=== PATIENT | female | born 1990 | race American Indian/Alaskan Native ===

== ENCOUNTER 2020-05-27 11:30 | Emergency (ER) | payer SELFPAY ==
--- NOTE | 2020-05-27 15:55 | Emergency Department Report ---
Abscess Boil HPI - HPI Chief Complaint: Skin/Abscess/Foreign Body Stated Complaint: CYST Time Seen by Provider: 05/27/20 15:14 Duration: 1 Week Location: Other (Left labia) Severity: Mild History: Yes Pain, No Fever, No Purulent Drainage, No Numbness, No Foreign Body, No Previous History, No Insect Bite HPI: This is a 29-year-old female nontoxic, well nourished in appearance, no acute signs of distress presents to the ED with c/o of redness and pain to left labia x 1 week. Patient denies any pus or drainage. Patient denies any fever, chills, nausea, vomiting, chest pain, shortness of breath, headache or stiff neck. Patient denies any allergies or significant past medical history. Home Medications: Previous Rx's Medication Instructions Recorded Last Taken Type Acetaminophen/Codeine [Tylenol 1 tab PO Q6H PRN #12 tab 05/27/20 Unknown Rx /Codeine # 3 tab] Sulfamethoxazole/Trimethoprim 1 each PO BID #14 tablet 05/27/20 Unknown Rx [Bactrim DS TAB] Allergies/Adverse Reactions: Allergies Allergy/AdvReac Type Severity Reaction Status Date / Time No Known Allergies Allergy Unverified 05/27/20 12:14 ED Review of Systems ROS: Stated complaint: CYST Other details as noted in HPI Constitutional: denies: chills, fever Eyes: denies: eye pain, eye discharge, vision change ENT: denies: ear pain, throat pain Respiratory: denies: cough, shortness of breath, wheezing Cardiovascular: denies: chest pain, palpitations Endocrine: no symptoms reported Gastrointestinal: denies: abdominal pain, nausea, diarrhea Genitourinary: denies: urgency, dysuria, discharge Musculoskeletal: denies: back pain, joint swelling, arthralgia Skin: denies: rash, lesions Neurological: denies: headache, weakness, paresthesias Psychiatric: denies: anxiety, depression Hematological/Lymphatic: denies: easy bleeding, easy bruising ED Past Medical Hx - Past Medical History Previous Medical History?: No - Surgical History Past Surgical History?: No - Medications Home Medications: Home Medications Medication Instructions Recorded Confirmed Last Taken Type Acetaminophen/Codeine [Tylenol 1 tab PO Q6H PRN #12 tab 05/27/20 Unknown Rx /Codeine # 3 tab] Sulfamethoxazole/Trimethoprim 1 each PO BID #14 tablet 05/27/20 Unknown Rx [Bactrim DS TAB] ED Abscess Boil Physical Exam - Exam General: Vital signs noted. No distress. Alert and acting appropriately. Size: 3 cm Exam: Yes Tenderness, Yes Fluctuance, Yes Normal Neurologic Exam, Yes Normal Circulation, No Lymphangitis, No Crepitation, No Heart Murmur I & D Note - I & D Note I & D Note: Under sterile field, I used Betadine to cleanse the area. I then used 2% lidocaine plain with 25-gauge 5/8 needle to inject area for anesthetic purposes. Total volume injected 3 mL. I then used an 11 blade to make a 1 cm incision. About 5 mL's of purulent drainage has been noted. I then used a hemostat to break the abscess formation. I then used sterile 0.9% normal saline flush to flush the wound with total volume of 40 mL used. I then put a 1/4 iodoform packing to the incision. A sterile 4 x 4 with tape has been applied as dressing. Bleeding is under control. Patient tolerated the procedure well with no signs of distress noted. ED Course Vital Signs 05/27/20 12:14 Temperature 98.5 F Pulse Rate 79 Respiratory 16 Rate Blood Pressure 135/90 [Right] O2 Sat by Pulse 100 Oximetry - Reevaluation(s) Reevaluation #1: 05/27/20 15:55 Patient is speaking in full sentences with no signs of distress noted. Critical care attestation.: If time is entered above; I have spent that time in minutes in the direct care of this critically ill patient, excluding procedure time. ED Medical Decision Making - Medical Decision Making This is a 29-year-old female that presents with left labia abscess. Patient is stable and was examined by me. This is incision and drainage and has been performed and patient tolerated well. A sterile dressing has been applied. Patient was educated on proper wound care. Patient is discharged with Bactrim and Tylenol with codeine and was instructed not to operate any machinery while taking Tylenol with codeine due to drowsiness. Patient was instructed to return in 2 days for packing removal. Patient was instructed to refer to Follow-up with a primary care doctor in 3-5 days or if symptoms worsen and continue return to emergency room as soon as possible. At time of discharge, the patient does not seem toxic or ill in appearance. No acute signs of distress noted. Patient agrees to discharge treatment plan of care. No further questions noted by the patient. ED Disposition Clinical Impression: Bartholin's gland abscess, Encounter for incision and drainage procedure Disposition: TO HOME OR SELFCARE Is pt being admited?: No Does the pt Need Aspirin: No Condition: Stable Instructions: Abscess Incision and Drainage (ED), Bartholin Cyst (ED), Acetaminophen/Codeine (By mouth) Additional Instructions: Follow-up with a primary care doctor in 3-5 days or if symptoms worsen and continue return to emergency room as soon as possible. Return in 2 days for packing removal. Do not operate any machinery while taking Tylenol with codeine as this may cause drowsiness. Prescriptions: Sulfamethoxazole/Trimethoprim [Bactrim DS TAB] 1 each PO BID #14 tablet Acetaminophen/Codeine [Tylenol /Codeine # 3 tab] 1 tab PO Q6H PRN #12 tab PRN Reason: Pain , Severe (7-10) Referrals: PRIMARY MD SAJI [Primary Care Provider] - 3-5 Days SKYLER PATINO MD [Staff Physician] - 3-5 Days Forms: Work/School Release Form(ED)
[2020-05-27] MEDS ORDERED: HYDROcodone/ACETAMINOPHEN 10-325MG TAB PO ONE (17:04)
[2020-05-27 18:44] VITALS: BP 114/79
== END 2020-05-27 18:56 | disposition home or self-care (01) ==
LOC: ED 11:30
DX: N75.1 Abscess of Bartholin's gland (principal)
CPT/HCPCS: 99282

== ENCOUNTER 2020-05-30 13:15 | Emergency (ER) | payer SELFPAY ==
--- NOTE | 2020-05-30 13:21 | Event Note ---
ED Screening Note Date of service: 05/30/20 Time: 13:20 ED Screening Note: The patient was evaluated in the emergency department for symptoms described in the history of present illness. He/she was evaluated in the context of the global COVID-19 pandemic, which necessitated consideration that the patient might be at risk for infection with the virus that causes COVID-19. Institutional protocols and algorithms that pertain to the evaluation of patients at risk for COVID-19 are in a state of rapid change based on information released by regulatory bodies including the CDC and federal and state organizations. These policies and algorithms were followed during the patient's care in the emergency department. Please note that these policies, procedures and recommendations changed on a rapid basis. 29-year-old -[place] female presents to the emergency room for packing removal in her vaginal area. This initial assessment/diagnostic orders/clinical plan/treatment(s) is/are subject to change based on patients health status, clinical progression and re- assessment by fellow clinical providers in the ED. Further treatment and workup at subsequent clinical providers discretion. Patient/guardian urged not to elope from the ED as their condition may be serious if not clinically assessed and managed. Initial orders include:
[2020-05-30 13:23] VITALS: BP 139/70
--- NOTE | 2020-05-30 14:50 | Emergency Department Report ---
Suture/Staple Removal - [facility] Chief Complaint: Skin/Abscess/Foreign Body Stated Complaint: UNPACK CYST Time Seen by Provider: 05/30/20 14:24 When Sutures or Seble Placed: 3 days Wound Location: labia ED Review of Systems ROS: Stated complaint: UNPACK CYST Other details as noted in HPI Constitutional: denies: chills, fever Eyes: denies: eye pain, eye discharge, vision change ENT: denies: ear pain, throat pain Respiratory: denies: cough, shortness of breath, wheezing Cardiovascular: denies: chest pain, palpitations Endocrine: no symptoms reported Gastrointestinal: denies: abdominal pain, nausea, diarrhea Genitourinary: denies: urgency, dysuria, discharge Musculoskeletal: denies: back pain, joint swelling, arthralgia Skin: denies: rash, lesions Neurological: denies: headache, weakness, paresthesias Psychiatric: denies: anxiety, depression Hematological/Lymphatic: denies: easy bleeding, easy bruising ED Past Medical Hx - Past Medical History Previous Medical History?: No - Surgical History Past Surgical History?: No - Social History Smoking Status: Never Smoker Substance Use Type: Marijuana - Medications Home Medications: Home Medications Medication Instructions Recorded Confirmed Last Taken Type Acetaminophen/Codeine [Tylenol 1 tab PO Q6H PRN #12 tab 05/27/20 Unknown Rx /Codeine # 3 tab] Sulfamethoxazole/Trimethoprim 1 each PO BID #14 tablet 05/27/20 Unknown Rx [Bactrim DS TAB] Suture Removal Exam - Exam General: Vital signs noted. No distress. Alert and acting appropriately. Wound: No Pathologic Erythema, No Tenderness, No Drainage, No Pus, No Wound Dehiscence Other Systems: All other systems reviewed and are unremarkable. ED Course Vital Signs 05/30/20 13:20 Temperature 98.3 F Pulse Rate 76 Respiratory 18 Rate Blood Pressure 139/70 O2 Sat by Pulse 97 Oximetry - Reevaluation(s) Reevaluation #1: 05/30/20 14:50 Patient is speaking in full sentences with no signs of distress noted. ED Recheck MDM - Medical Decision Making One fourth iodoform packing has been removed from the labia. Patient tolerated well. No signs of swelling. Well-healing. No induration or fluctuance. No purulent drainage. Track Service Person Liz RN present during exam. Patient stated is currently taking antibiotics. And educated to continue taking antibiotics as prescribed. Patient was instructed to follow-up with a primary care doctor in 3-5 days or if symptoms worsen and continue return to emergency room as soon as possible. At time of discharge, the patient does not seem toxic or ill in appearance. No acute signs of distress noted. Patient agrees to discharge treatment plan of care. No further questions noted by the patient. Critical care attestation.: If time is entered above; I have spent that time in minutes in the direct care of this critically ill patient, excluding procedure time. ED Disposition Clinical Impression: Encounter for abscess packing removal Disposition: DC-01 TO HOME OR SELFCARE Is pt being admited?: No Does the pt Need Aspirin: No Condition: Stable Additional Instructions: Follow-up with a primary care doctor in 3-5 days or if symptoms worsen and continue return to emergency room as soon as possible. Referrals: PRIMARY MD SAJI [Referring] - 3-5 Days SKYLER PATINO MD [Staff Physician] - 3-5 Days
== END 2020-05-30 15:10 | disposition home or self-care (01) ==
LOC: ED 13:15
DX: N75.1 Abscess of Bartholin's gland (principal); Z48.00 Encounter for change or removal of nonsurgical wound dressing
CPT/HCPCS: 99282

== ENCOUNTER 2020-09-25 10:26 | Emergency (ER) | payer SELFPAY ==
[2020-09-25 10:41] VITALS: BP 130/87
--- NOTE | 2020-09-25 10:41 | Emergency Department Report ---
ED Female HPI - General Chief complaint: Abdominal Pain Stated complaint: RT FLANK PAIN Time Seen by Provider: 09/25/20 10:36 Source: patient Mode of arrival: Ambulatory Limitations: No Limitations - History of Present Illness Initial comments: 29-year-old -[place] female presents to the emergency room stating she has right flank pain that is been intermittent for the last week. Patient states that the pain is intense when she has had to take a Tylenol with hydrocodone. Patient states she has a history of a kidney stone and states that it feels the same. Patient reports that the pain is, nagging and throbbing at times. She states that times is just a dull ache. Patient denies any nausea no vomiting. She denies any vaginal bleeding vaginal discharge. Patient states she has not had her cycle this month that she has changed her diet to vegan. Patient reports she is in a lesbian relationship and does not feel that she is . MD Complaint: other (Right flank pain) Onset/Timin -: week(s) Radiation: non-radiating, R flank Severity: moderate Severity scale (0 -10): 7 Quality: dull, aching Consistency: constant Improves with: none Worsens with: other (Holding her urine) Are you Now?: No Associated Symptoms: denies other symptoms - Related Data Sexually active: Yes (Lesbian relationship) Previous Rx's Medication Instructions Recorded Last Taken Type Acetaminophen/Codeine [Tylenol 1 tab PO Q6H PRN #12 tab 05/27/20 Unknown Rx /Codeine # 3 tab] Sulfamethoxazole/Trimethoprim 1 each PO BID #14 tablet 05/27/20 Unknown Rx [Bactrim DS TAB] Nitrofurantoin [place]/M-Cryst 100 mg PO Q12HR 10 Days #20 capsule 09/25/20 Unknown Rx [Macrobid CAP] Allergies Allergy/AdvReac Type Severity Reaction Status Date / Time nickel Allergy Unknown Verified 09/25/20 10:31 ED Review of Systems ROS: Stated complaint: RT FLANK PAIN Other details as noted in HPI Comment: All other systems reviewed and negative ED Past Medical Hx - Past Medical History Additional medical history: KIDNEY STONES - Surgical History Past Surgical History?: No - Social History Smoking Status: Never Smoker Substance Use Type: Marijuana - Medications Home Medications: Home Medications Medication Instructions Recorded Confirmed Last Taken Type Acetaminophen/Codeine [Tylenol 1 tab PO Q6H PRN #12 tab 05/27/20 Unknown Rx /Codeine # 3 tab] Sulfamethoxazole/Trimethoprim 1 each PO BID #14 tablet 05/27/20 Unknown Rx [Bactrim DS TAB] Nitrofurantoin [place]/M-Cryst 100 mg PO Q12HR 10 Days #20 capsule 09/25/20 Unknown Rx [Macrobid CAP] ED Physical Exam - General Limitations: No Limitations General appearance: alert, in no apparent distress - Head Head exam: Present: atraumatic, normocephalic - Eye Eye exam: Present: normal appearance - ENT ENT exam: Present: mucous membranes moist - Neck Neck exam: Present: normal inspection, full ROM - Respiratory Respiratory exam: Absent: accessory muscle use - Cardiovascular Cardiovascular Exam: Present: regular rate, normal rhythm. Absent: systolic murmur, diastolic murmur, rubs, gallop - GI/Abdominal GI/Abdominal exam: Present: soft. Absent: distended, tenderness, guarding - Extremities Exam Extremities exam: Present: normal inspection, full ROM - Back Exam Back exam: Present: normal inspection - Neurological Exam Neurological exam: Present: alert, oriented X3, normal gait - Psychiatric Psychiatric exam: Present: normal affect, normal mood - Skin Skin exam: Present: warm, dry, intact, normal color. Absent: rash ED Course Vital Signs 09/25/20 10:32 Temperature 98.5 F Pulse Rate 64 Respiratory 20 Rate Blood Pressure 130/87 O2 Sat by Pulse 100 Oximetry ED Medical Decision Making - Medical Decision Making 29-year-old -[place] female presents to the emergency room stating she has right flank pain that is been intermittent for the last week. Patient states that the pain is intense when she has had to take a Tylenol with hydrocodone. Patient states she has a history of a kidney stone and states that it feels the same. Patient reports that the pain is, nagging and throbbing at times. She states that times is just a dull ache. Patient denies any nausea no vomiting. She denies any vaginal bleeding vaginal discharge. Patient states she has not had her cycle this month that she has changed her diet to vegan. Patient reports she is in a lesbian relationship and does not feel that she is . Urinalysis is positive for urinary tract infection. Complete antibiotics of Macrobid. Tylenol ibuprofen or naproxen as needed for pain management. Be sure to increase your water intake advance your diet as tolerated and follow-up with the [facility]. Critical care attestation.: If time is entered above; I have spent that time in minutes in the direct care of this critically ill patient, excluding procedure time. ED Disposition Clinical Impression: UTI (urinary tract infection) Disposition: TO HOME OR SELFCARE Is pt being admited?: No Does the pt Need Aspirin: No Condition: Stable Instructions: Abdominal Pain (ED), Urinary Tract Infection, Adult, [id number] Additional Instructions: Urinalysis is positive for urinary tract infection. I am placing you on antibiotics that you need to complete fully. You need to increase your water intake and advance your diet as tolerated. Tylenol or ibuprofen as needed for p ain management. Follow-up with the [facility] MA[facility] if any further concerns. Prescriptions: Nitrofurantoin [place]/M-Cryst [Macrobid CAP] 100 mg PO Q12HR 10 Days #20 capsule Referrals: [facility] [Provider Group] - 3-5 Days Forms: Work/School Release Form(ED)
[2020-09-25 12:17] LABS: Bilirubin,Urine NEG (Negative); Blood,Urine SM (Negative); Color,Urine Yellow (Yellow); Mucus,Urine 1+ /HPF; Urobilinogen,Urine < 2.0 mg/dL (<2.0)
[2020-09-25 12:18] LABS: WBC,Urine > 182.0 /HPF (0.0-6.0)
[2020-09-25 12:19] LABS: HCG Qualitative,Urine Negative (Negative)
== END 2020-09-25 12:53 | disposition home or self-care (01) ==
LOC: ED 10:26
DX: N39.0 Urinary tract infection, site not specified (principal); F12.90 Cannabis use, unspecified, uncomplicated; Z79.899 Other long term (current) drug therapy; Z88.8 Allergy status to other drugs, medicaments and biological substances
CPT/HCPCS: 81001; 81025; 99283

== ENCOUNTER 2022-05-05 15:26 | Emergency (ER) | payer SELFPAY ==
[2022-05-05] MEDS ORDERED: LORazepam 1 MG TAB PO ONE (18:53)
[2022-05-05] MEDS ORDERED: KETOROLAC 30 MG/1 ML INJ IM ONE (18:53)
--- NOTE | 2022-05-05 19:35 | Emergency Department Report ---
- General Chief complaint: Skin/Abscess/Foreign Body Stated complaint: CYST Time Seen by Provider: 05/05/22 18:44 Source: patient, EMS Mode of arrival: Stretcher Limitations: No Limitations - History of Present Illness Initial comments: Patient is a 31-year-old female with history of Bartholin's abscess who presents with 3 exacerbation of same that started about 2 weeks ago on her left labia. She has been using warm compresses and used Salonpas and lidocaine patches to the area but it has worsened over that time.. She denies any vaginal discharge or bleeding she is sexually active with a female partner. No abdominal or flank pain. T-max 99.8. She is extremely anxious about the procedure as she states that it was very painful the last time. She is tearful when she talks about it. - Related Data Previous Rx's Medication Instructions Recorded Last Taken Type Acetaminophen/Codeine [Tylenol 1 tab PO Q6H PRN #12 tab 05/27/20 Unknown Rx /Codeine # 3 tab] Sulfamethoxazole/Trimethoprim 1 each PO BID #14 tablet 05/27/20 Unknown Rx [Bactrim DS TAB] Nitrofurantoin [place]/M-Cryst 100 mg PO Q12HR 10 Days #20 capsule 09/25/20 Unknown Rx [Macrobid CAP] Sulfamethoxazole/Trimethoprim 1 each PO BID #16 tab 05/05/22 Unknown Rx [Bactrim DS TAB] traMADoL [Ultram 50 MG tab] 50 mg PO Q6HR PRN #8 tablet 05/05/22 Unknown Rx Allergies Allergy/AdvReac Type Severity Reaction Status Date / Time nickel Allergy Unknown Verified 05/05/22 15:59 Abscess Boil HPI - HPI Chief Complaint: Skin/Abscess/Foreign Body Stated Complaint: CYST Time Seen by Provider: 05/05/22 18:44 Home Medications: Previous Rx's Medication Instructions Recorded Last Taken Type Acetaminophen/Codeine [Tylenol 1 tab PO Q6H PRN #12 tab 05/27/20 Unknown Rx /Codeine # 3 tab] Sulfamethoxazole/Trimethoprim 1 each PO BID #14 tablet 05/27/20 Unknown Rx [Bactrim DS TAB] Nitrofurantoin [place]/M-Cryst 100 mg PO Q12HR 10 Days #20 capsule 09/25/20 Unknown Rx [Macrobid CAP] Sulfamethoxazole/Trimethoprim 1 each PO BID #16 tab 05/05/22 Unknown Rx [Bactrim DS TAB] traMADoL [Ultram 50 MG tab] 50 mg PO Q6HR PRN #8 tablet 05/05/22 Unknown Rx Allergies/Adverse Reactions: Allergies Allergy/AdvReac Type Severity Reaction Status Date / Time nickel Allergy Unknown Verified 05/05/22 15:59 ED Review of Systems ROS: Stated complaint: CYST Other details as noted in HPI Constitutional: denies: chills, fever Eyes: denies: eye pain, eye discharge, vision change ENT: denies: ear pain, throat pain Respiratory: denies: cough, shortness of breath, wheezing Cardiovascular: denies: chest pain, palpitations Endocrine: no symptoms reported Gastrointestinal: denies: abdominal pain, nausea, diarrhea Genitourinary: as per HPI Musculoskeletal: denies: back pain, joint swelling, arthralgia Skin: denies: rash, lesions Neurological: denies: headache, weakness, paresthesias Psychiatric: denies: anxiety, depression Hematological/Lymphatic: denies: easy bleeding, easy bruising ED Past Medical Hx - Past Medical History Previous Medical History?: No Additional medical history: KIDNEY STONES - Surgical History Past Surgical History?: No - Social History Smoking Status: Never Smoker Substance Use Type: Marijuana - Medications Home Medications: Home Medications Medication Instructions Recorded Confirmed Last Taken Type Acetaminophen/Codeine [Tylenol 1 tab PO Q6H PRN #12 tab 05/27/20 Unknown Rx /Codeine # 3 tab] Sulfamethoxazole/Trimethoprim 1 each PO BID #14 tablet 05/27/20 Unknown Rx [Bactrim DS TAB] Nitrofurantoin [place]/M-Cryst 100 mg PO Q12HR 10 Days #20 capsule 09/25/20 Unknown Rx [Macrobid CAP] Sulfamethoxazole/Trimethoprim 1 each PO BID #16 tab 05/05/22 Unknown Rx [Bactrim DS TAB] traMADoL [Ultram 50 MG tab] 50 mg PO Q6HR PRN #8 tablet 05/05/22 Unknown Rx ED Physical Exam - General Limitations: No Limitations General appearance: alert, in no apparent distress - Head Head exam: Present: atraumatic, normocephalic - Eye Eye exam: Present: normal appearance - ENT ENT exam: Present: mucous membranes moist - Neck Neck exam: Present: normal inspection - Respiratory Respiratory exam: Present: normal lung sounds bilaterally. Absent: respiratory distress - Cardiovascular Cardiovascular Exam: Present: regular rate, normal rhythm. Absent: systolic murmur, diastolic murmur, rubs, gallop - GI/Abdominal GI/Abdominal exam: Present: soft, normal bowel sounds - External exam: Present: other (Large Bartholin cyst in 2 left labia majora.) Speculum exam: Present: other (Deferred due to pain) - Extremities Exam Extremities exam: Present: normal inspection - Back Exam Back exam: Present: normal inspection - Neurological Exam Neurological exam: Present: alert, oriented X3 - Psychiatric Psychiatric exam: Present: normal affect, normal mood - Skin Skin exam: Present: warm, dry, intact, normal color. Absent: rash ED Course Vital Signs 05/05/22 15:58 Temperature 99.8 F H Pulse Rate 115 H Respiratory 20 Rate Blood Pressure 149/103 [Left] O2 Sat by Pulse 99 Oximetry - I & D Left Genitals Type of Procedure: Simple Site: Left labia Blade Size: 11 I & D Procedure: betadine prep Progress: Area prepped with Betadine. Anesthetized with 1% lidocaine with epi. 11 blade scalpel was utilized to make a stab incision into the center of the area of fluctuance. Copious amount of purulent drainage was expressed from the wound. Loculations cleared with a curved Antonietta. Patient tolerated procedure well. With the exception of severe pain. Pads placed for drainage. ED Medical Decision Making - Medical Decision Making Patient is a 31-year-old female with history of Bartholin's abscess who presents with 3 exacerbation of same that started about 2 weeks ago on her left labia. She has been using warm compresses and used Salonpas and lidocaine patches to the area but it has worsened over that time.. She denies any vaginal discharge or bleeding she is sexually active with a female partner. No abdominal or flank pain. T-max 99.8. She is extremely anxious about the procedure as she states that it was very painful the last time. She is tearful when she talks about it. Ativan 1 mg p.o. and 30 mg of Toradol given IM. I&D performed as per procedure note. Cultures obtained. Discussed need for [facility] follow-up. Critical care attestation.: If time is entered above; I have spent that time in minutes in the direct care of this critically ill patient, excluding procedure time. ED Disposition Clinical Impression: Bartholin's gland abscess Disposition: 01 HOME / SELF CARE / HOMELESS Is pt being admited?: No Condition: Stable Instructions: Bartholin's Cyst, [id number] Additional Instructions: Sitz bath as explained to patient. Antibiotics. [facility] follow-up for definitive care given recurrence. Prescriptions: Sulfamethoxazole/Trimethoprim [Bactrim DS TAB] 1 each PO BID #16 tab traMADoL [Ultram 50 MG tab] 50 mg PO Q6HR PRN #8 tablet PRN Reason: Pain Referrals: KAYLIN DANIEL MD [Staff Physician] - 3-5 Days Forms: Work/School Release Form(ED) Time of Disposition: 21:11
[2022-05-05] MEDS ORDERED: LIDOCAINE 1%/EPINEPHRINE 1:100,000 VIAL (20 ML) INFILTRATI ONE (20:26)
[2022-05-05] MEDS ORDERED: LIDOCAINE 2%/EPINEPHRINE 1:100,000 VIAL (20 ML) INFILTRATI ONE (20:41)
[2022-05-05] MEDS ORDERED: LIDOCAINE-MPF (1%) 10 MG/1 ML VIAL 5 ML INFILTRATI ONE (20:45)
[2022-05-05 21:58] VITALS: BP 118/75
== END 2022-05-05 21:25 | disposition home or self-care (01) ==
LOC: ED 15:26
DX: N75.1 Abscess of Bartholin's gland (principal); Z79.899 Other long term (current) drug therapy; Z88.8 Allergy status to other drugs, medicaments and biological substances
CPT/HCPCS: 56420; 96372; 99283; J1885; J3490